=== PATIENT | male | born 1965 | race Caucasian/White ===

== ENCOUNTER 2021-06-14 06:24 | Emergency (ER) | payer OTHER ==
[2021-06-14] MEDS ORDERED: ACETAMINOPHEN 500 MG TAB ONE (07:15)
--- NOTE | 2021-06-14 10:20 | ER ---
Nurse's Notes [facility] Name: Jignesh Verdin Age: 55 yrs Sex: Male : 1965 Arrival Date: 06/14/2021 Time: 06:31 Bed 8 Private MD: Diagnosis: Coronavirus infection, unspecified Presentation: 06/14 06:44 Chief complaint: Patient states: he was at work last night and half way through his bb shift he started feeling bad and his temp was 103.2 so he came to the ED did not take any medication. Coronavirus screen: fever, nausea, Client presents with at least one sign or symptom that may indicate coronavirus-19. Standard/surgical mask placed on the client. Ebola Screen: No symptoms or risks identified at this time. Initial Sepsis Screen: Does the patient meet any 2 criteria? No. Patient's initial sepsis screen is negative. Does the patient have a suspected source of infection? No. Patient's initial sepsis screen is negative. Risk Assessment: Do you want to hurt yourself or someone else? Patient reports no desire to harm self or others. Onset of symptoms was June 14, 2021. 06:44 Method Of Arrival: Ambulatory 06:44 Acuity: NIKOLAY 3 bb Triage Assessment: 06:46 General: Appears in no apparent distress. Behavior is calm, cooperative. Pain: bb Complains of pain in chest. Neuro: Level of Consciousness is awake, alert, obeys commands, Oriented to person, place, time, situation. Cardiovascular: Capillary refill < 3 seconds Patient's skin is warm and dry. Respiratory: Respiratory effort is even, unlabored. GI: No signs and/or symptoms were reported involving the gastrointestinal system. Derm: Skin is pink, warm \T\ dry. Musculoskeletal: Circulation, motion, and sensation intact. Historical: - Allergies: 06:46 allergic to unknown medication; bb - Home Meds: 06:46 None [Active]; bb - PMHx: 06:46 None; bb - PSHx: 06:46 Appendectomy; bb - Immunization history:: Adult Immunizations up to date, Client reports having NOT received the Covid vaccine. - Social history:: Smoking status: Patient reports use of chewing tobacco. Patient/guardian denies using alcohol, street drugs. Screenin:28 Abuse screen: Denies threats or abuse. Denies injuries from another. Nutritional sv screening: No deficits noted. Tuberculosis screening: No symptoms or risk factors identified. Fall Risk None identified. Assessment: 07:30 General: Appears in no apparent distress. Behavior is calm, cooperative. Pain: Pain hb currently is 3 out of 10 on a pain scale. Neuro: Level of Consciousness is awake, alert, obeys commands, Oriented to person, place, time, situation. Cardiovascular: Patient's skin is warm and dry. Respiratory: Reports cough that is Respiratory effort is even, unlabored, Respiratory pattern is regular, symmetrical. GI: No signs and/or symptoms were reported involving the gastrointestinal system. : No signs and/or symptoms were reported regarding the genitourinary system. EENT: Reports sore throat. Derm: Skin is pink, warm \T\ dry. 08:30 Reassessment: Patient appears in no apparent distress at this time. No changes from hb previously documented assessment. Patient is alert, oriented x 3, equal unlabored respirations, skin warm/dry/pink. 09:30 Reassessment: Patient appears in no apparent distress at this time. No changes from hb previously documented assessment. Patient is alert, oriented x 3, equal unlabored respirations, skin warm/dry/pink. 10:16 Reassessment: Patient appears in no apparent distress at this time. No changes from hb previously documented assessment. Patient is alert, oriented x 3, equal unlabored respirations, skin warm/dry/pink. 10:33 Reassessment: Patient appears in no apparent distress at this time. No changes from sv previously documented assessment. Patient is alert, oriented x 3, equal unlabored respirations, skin warm/dry/pink. Vital Signs: 06:44 BP 133 / 85; Pulse 86; Resp 18 S; Temp 102.6(O); Pulse Ox 98% on R/A; Weight 85.73 kg bb (R); Height 5 ft. 11 in. (180.34 cm) (R); 07:22 Temp 100.3; ss 09:00 BP 132 / 80; Pulse 80; Resp 15; Pulse Ox 98% ; hb 06:44 Body Mass Index 26.36 (85.73 kg, 180.34 cm) bb ED Course: 06:31 Patient arrived in ED. bp1 06:46 Triage completed. bb 06:46 Arm band placed on Patient placed in waiting room, Patient notified of wait time. bb Antipyretics given from triage as ordered by an ER provider. Labs ordered per protocol. 07:19 Shukri Virk NP is PHCP. pm1 07:19 Surinder Simpson MD is Attending Physician. pm1 07:28 Anna Huertas RN is Primary Nurse. sv 07:28 Patient has correct armband on for positive identification. Bed in low position. Call sv light in reach. 10:32 No provider procedures requiring assistance completed. Patient did not have IV access sv during this emergency room visit. Administered Medications: 06:48 Drug: Tylenol 1000 mg Route: PO; bb 07:22 Follow up: Response: No adverse reaction; Temperature is decreased ss Outcome: 10:19 Discharge ordered by . pm1 10:33 Discharged to home ambulatory. sv 10:33 Condition: stable 10:33 Discharge instructions given to patient, Instructed on discharge instructions, follow up and referral plans. Demonstrated understanding of instructions, follow-up care. 10:33 Patient left the ED. sv Signatures: Anna Huertas, JARON SALMERON sv Jacki Gambino RN RN bb Smirch, Shelby, RN RN ss Shukri Virk NP REFINING ENGINEER pm1 Nova Pulido RN RN hb [place], Brittany bp1
--- NOTE | 2021-06-14 10:20 | EDPHYS ---
Physician Documentation [facility] Name: Jignesh Verdin Age: 55 yrs Sex: Male : 1965 Arrival Date: 06/14/2021 Time: 06:31 Bed 8 Private MD: ED Physician Surinder Simpson HPI: 06/14 08:28 This 55 yrs old Male presents to ER via Ambulatory with complaints of Fever, pm1 Cough. 08:28 The patient reports fever, that was measured at 103 degrees Fahrenheit. Onset: The pm1 symptoms/episode began/occurred this morning. Modifying factors: Unknown. Associated signs and symptoms: Pertinent positives: cough, that is dry, headache, Body aches, sore throat, Pertinent negatives: chest pain, diarrhea, nausea, shortness of breath, vomiting. Severity of symptoms: in the emergency department the symptoms are unchanged. The patient has not experienced similar symptoms in the past. The patient has not recently seen a physician. Patient presented to ER for test to rule out Covid. Historical: - Allergies: 06:46 allergic to unknown medication; bb - Home Meds: 06:46 None [Active]; bb - PMHx: 06:46 None; bb - PSHx: 06:46 Appendectomy; bb - Immunization history:: Adult Immunizations up to date, Client reports having NOT received the Covid vaccine. - Social history:: Smoking status: Patient reports use of chewing tobacco. Patient/guardian denies using alcohol, street drugs. ROS: 08:28 Eyes: Negative for injury, pain, redness, and discharge. pm1 08:28 Cardiovascular: Negative for chest pain, palpitations, and edema. 08:28 Abdomen/GI: Negative for abdominal pain, nausea, vomiting, diarrhea, and constipation, : Negative for injury, bleeding, discharge, and swelling, MS/Extremity: Negative for injury and deformity, Skin: Negative for injury, rash, and discoloration, Neuro: Negative for headache, weakness, numbness, tingling, and seizure. 08:28 Constitutional: Positive for body aches, fever, Negative for poor PO intake. 08:28 ENT: Positive for sore throat, Negative for ear pain. 08:28 Respiratory: Positive for cough, Negative for shortness of breath. 08:28 All other systems are negative. Exam: 08:28 Constitutional: This is a well developed, well nourished patient who is awake, alert, pm1 and in no acute distress. Head/Face: Normocephalic, atraumatic. 08:28 Skin: Warm, dry with normal turgor. Normal color with no rashes, no lesions, and no evidence of cellulitis. MS/ Extremity: Pulses equal, no cyanosis. Neurovascular intact. Full, normal range of motion. 08:28 Eyes: Exam is negative for acute changes, Extraocular movements: no acute changes, Conjunctiva: normal, no injection. 08:28 ENT: Exam is negative for acute changes, Mouth: Lips: normal, moist, Oral mucosa: normal, pink and intact, moist, Posterior pharynx: no acute changes. 08:28 Cardiovascular: Exam negative for acute changes, Rate: normal, Rhythm: regular, Pulses: no pulse deficits are appreciated, Heart sounds: normal, normal S1and S2. 08:28 Respiratory: Exam negative for acute changes, respiratory distress, shortness of breath, Breath sounds: are clear throughout. 08:28 Abdomen/GI: Exam negative for acute changes, Inspection: abdomen appears normal, Palpation: abdomen is soft and non-tender, in all quadrants. 08:28 Neuro: Exam negative for acute changes, Orientation: is normal, Mentation: is normal, Motor: is normal, moves all fours. Vital Signs: 06:44 BP 133 / 85; Pulse 86; Resp 18 S; Temp 102.6(O); Pulse Ox 98% on R/A; Weight 85.73 kg bb (R); Height 5 ft. 11 in. (180.34 cm) (R); 07:22 Temp 100.3; ss 09:00 BP 132 / 80; Pulse 80; Resp 15; Pulse Ox 98% ; hb 06:44 Body Mass Index 26.36 (85.73 kg, 180.34 cm) bb MDM: 07:19 Patient medically screened. pm1 10:18 Data reviewed: vital signs. Data interpreted: Pulse oximetry: on room air is 98 %. pm1 Interpretation: normal. Counseling: I had a detailed discussion with the patient and/or guardian regarding: the historical points, exam findings, and any diagnostic results supporting the discharge/admit diagnosis, lab results, the need for outpatient follow up, to return to the emergency department if symptoms worsen or persist or if there are any questions or concerns that arise at home. 06/14 06:49 Order name: Flu bb 06/14 08:27 Order name: Strep; Complete Time: 10:18 pm1 06/14 08:42 Order name: SARS-COV-2 RT PCR; Complete Time: 08:46 EDMS 06/14 10:02 Order name: Throat Culture EDMS Administered Medications: 06:48 Drug: Tylenol 1000 mg Route: PO; bb 07:22 Follow up: Response: No adverse reaction; Temperature is decreased ss Disposition Summary: 06/14/21 10:19 Discharge Ordered Location: Home pm1 Problem: new pm1 Symptoms: have improved pm1 Condition: Stable pm1 Diagnosis - Coronavirus infection, unspecified pm1 Followup: pm1 - With: Emergency Department - When: As needed - Reason: Worsening of condition Followup: pm1 - With: Private Physician - When: 2 - 3 days - Reason: Recheck today's complaints, Continuance of care, Re-evaluation by your physician Discharge Instructions: - Discharge Summary Sheet pm1 - COVID-19 pm1 - COVID-19 Frequently Asked Questions pm1 - 10 Things You Can Do to Manage Your COVID-19 Symptoms at Home - [facility] pm1 - COVID-19: Quarantine vs. Isolation - [facility] pm1 Forms: - Medication Reconciliation Form pm1 - Thank You Letter pm1 - Antibiotic Education pm1 - Prescription Opioid Use pm1 Signatures: Dispatcher [employer] EDMS Jacki Gambino RN RN bb Shukri Virk, [employer] pm1 Isis Vaughan RN ss Corrections: (The following items were deleted from the chart) 07:53 06:50 CORONAVIRUS+.BRZ ordered. [facility] EDMS
[2021-06-14 10:37] VITALS: O2SAT 98
[2021-06-14 10:38] VITALS: TEMP 100.3
[2021-06-14 10:39] VITALS: BP 132/80
== END 2021-06-14 10:33 | disposition home or self-care (01) ==
LOC: ER 06:24
DX: U07.1 COVID-19 (principal); F17.220 Nicotine dependence, chewing tobacco, uncomplicated
CPT/HCPCS: 87070; 87081; 87804 ×2; 99283; U0003